=== PATIENT | female | born 1950 ===

== ENCOUNTER 2021-04-24 00:29 | Outpatient (REF) | payer SELFPAY | END 2021-04-24 00:30 | disposition home or self-care (01) | LOC: HO.MMNH1L 00:29 | PROVIDERS: Visit Provider Family Medicine | DX: Z13.89 Encounter for screening for other disorder (principal) ==

== ENCOUNTER 2021-05-01 00:55 | Outpatient (REF) | payer SELFPAY | END 2021-05-01 00:56 | disposition home or self-care (01) | LOC: HO.MMNH1L 00:55 | PROVIDERS: Visit Provider Family Medicine | DX: Z13.89 Encounter for screening for other disorder (principal) ==

== ENCOUNTER 2021-06-08 07:23 | Outpatient (REF) | payer SELFPAY ==
[2021-06-08 07:56] LABS: Basophils Percent Auto 0.3 % (0-2); Eosinophils Absolute Auto 0.4 X10*3/uL (0.0-0.4); Eosinophils Percent Auto 2.8 % (0-4); Hematocrit 25.5 % (37.0-47.0); Hemoglobin 7.4 g/dl (12.0-16.0); Imm Gran Abs Auto 0.11 X10*3/uL (0.00-0.03); Imm Gran Pct Auto 0.8 % (0.0-0.4); Lymphocytes Absolute Auto 1.9 X10*3/uL (1.2-4.9); Lymphocytes Percent Auto 13.7 % (20-40); MANUAL DIFF FLAG SCAN; Mean Corpuscular Hemoglobin 21.5 pg (27.0-33.0); Mean Corpuscular Volume 74.1 fL (80.0-98.0); Monocytes Absolute Auto 1.2 X10*3/uL (0.1-1.2); Monocytes Percent Auto 8.7 % (2-11); Neutrophils Absolute Auto 10.1 x10*3/uL (2.0-8.3); Neutrophils Percent Auto 73.7 % (45-73); PLT CLUMP 1; Red Blood Count 3.44 X10*6/uL (4.20-5.50); Red Cell Distribution Width 20.2 % (11.0-16.0); SCAN SMEAR FLAG 1
[2021-06-08 07:58] LABS: NRBC Pct Auto 1.4 /100WBC (0.0-0.2); Platelet Count 147 X10*3/uL (160-400); White Blood Count 13.4 X10*3/uL (4.8-10.8)
[2021-06-08 08:11] LABS: Alanine Aminotransferase 20 U/L (0-31); Albumin Level 2.8 g/dL (3.5-5.0); Alkaline Phosphatase 114 U/L (39-117); Anion Gap 14 (12-20); Aspartate Amino Transferase 24 U/L (5-31); Bilirubin Total 0.3 mg/dL (0.0-1.0); Blood Urea Nitrogen 57 mg/dL (9-16); Carbon Dioxide 33 mmol/L (22-29); Chloride 99 mmol/L (96-108); Estimated Glomerular Filt Rate 27; Glucose Random 128 mg/dL (60-115); Potassium 3.7 mmol/L (3.3-5.1); Sodium 142 mmol/L (135-145); Total Protein 5.4 g/dL (6.5-8.0)
[2021-06-08 09:24] LABS: SLIDE REVIEW VERIFIED
== END 2021-06-08 07:24 | disposition home or self-care (01) ==
LOC: HO.MMNH1L 07:23
PROVIDERS: Visit Provider Family Medicine
DX: N18.9 Chronic kidney disease, unspecified (principal)
CPT/HCPCS: 36415; 80053; 85025

== ENCOUNTER 2021-06-28 07:33 | Outpatient (REF) | payer SELFPAY ==
[2021-06-28 08:24] LABS: Anion Gap 13 (12-20); Blood Urea Nitrogen 60 mg/dL (9-16); Calcium 8.6 mg/dL (8.4-10.2); Carbon Dioxide 35 mmol/L (22-29); Chloride 102 mmol/L (96-108); Estimated Glomerular Filt Rate 46; Glucose Random 43 mg/dL (60-115); Potassium 4.6 mmol/L (3.3-5.1); Sodium 145 mmol/L (135-145)
== END 2021-06-28 07:34 | disposition home or self-care (01) ==
LOC: HO.MMNH1L 07:33
PROVIDERS: Visit Provider Family Medicine
DX: E87.5 Hyperkalemia (principal)
CPT/HCPCS: 36415; 80048